=== PATIENT | male | born 1995 | race African-American/Black ===

== ENCOUNTER 2017-08-16 16:28 | Emergency (ER) | payer OTHER | END 2017-08-16 19:32 | disposition home or self-care (01) | LOC: EDH 16:28 | DX: F10.129 Alcohol abuse with intoxication, unspecified (principal); S09.8XXA Other specified injuries of head, initial encounter; Y90.9 Presence of alcohol in blood, level not specified; W18.39XA Other fall on same level, initial encounter; Y93.89 Activity, other specified; Y92.091 Bathroom in other non-institutional residence as the place of occurrence of the external cause; Y99.8 Other external cause status | CPT/HCPCS: 70450; 72125 ==